=== PATIENT | male | born 1965 | race Caucasian/White ===

== ENCOUNTER 2020-07-02 12:54 | Emergency (ER) | payer MEDICAID ==
[~2020-07-02] VITALS: Ht 175.3 cm; Wt 75.0 kg
[~2020-07-02 12:54] MED LIST: CYCL-1 PO; DIGO125T PO; Levothyroxine PO; Metoprolol PO
[2020-07-02 13:52] LABS: BASOPHILS % (AUTO) 0.4 % (0-1); EOSINOPHILS % (AUTO) 0.3 % (0-6); HEMOGLOBIN 15.5 g/dl (14.0-17.9); LYMPHOCYTES # (AUTO) 1.5 X10'3 (1.1-4.8); LYMPHOCYTES % (AUTO) 14.6 % (21-51); MEAN CORPUSCULAR HEMOGLOBIN 30.1 PG (27.0-31.0); MEAN CORPUSCULAR HGB CONC 34.4 g/dL (33.0-36.5); MEAN CORPUSCULAR VOLUME 87.5 FL (78-98); MEAN PLATELET VOLUME 6.8 FL (7.4-10.4); MONOCYTES # (AUTO) 0.8 X10'3 (0-0.9); MONOCYTES % (AUTO) 7.9 % (2-12); NEUTROPHILS # (AUTO) 7.9 X10'3 (1.8-7.7); NEUTROPHILS % (AUTO) 76.8 % (42-75); PLATELET COUNT 380 X10'3 (140-440); RED BLOOD COUNT 5.14 X10'6 (4.70-6.10); RED CELL DISTRIBUTION WIDTH 14.3 % (11.5-14.5); WHITE BLOOD COUNT 10.3 X10'3 (4.5-11.0)
[2020-07-02 14:05] LABS: ALANINE AMINOTRANSFERASE 25 U/L (12-78); ALBUMIN 4.5 G/DL (3.4-5.0); ALBUMIN/GLOBULIN RATIO 1.2 (1.1-1.5); ALKALINE PHOSPHATASE 60 IU/L (46-116); ANION GAP 19 (8-16); ASPARTATE AMINO TRANSFERASE 18 U/L (10-37); BILIRUBIN,TOTAL 0.8 MG/DL (0.1-1.0); BLOOD UREA NITROGEN 12 MG/DL (7-18); BUN/CREATININE RATIO 12.6 (5.4-32.0); CALCIUM 9.6 MG/DL (8.5-10.1); CHLORIDE 104 MMOL/L (99-107); CREATININE 0.95 MG/DL (0.60-1.10); GLUCOSE 96 MG/DL (70-104); SODIUM 140 MMOL/L (135-145); TOTAL CARBON DIOXIDE 16.9 MMOL/L (24-32); TOTAL PROTEIN 8.3 G/DL (6.4-8.2); eGFR 82 ML/MIN
[2020-07-02 14:13] LABS: MAGNESIUM 2.4 MG/DL (1.5-2.4)
[2020-07-02 14:23] LABS: D-DIMER < 0.19 MG/L FEU (0-0.50)
[2020-07-02] MEDS ORDERED: LORA-269 PO (14:44)
--- NOTE | 2020-07-02 14:55 | NUR ---
PATIENT AMBULATED ABOUT 300 FEET WITH SPO2 MONITOR ON AND HR IN THE MID SEVENTIES AND SPO2 99% THE WHOLE TIME DISCUSSES PATIENT'S LABS AND CXR WITH PA AND PATIENT PATIENT APPEARS TO HAVE ANXIETY, WHEN I TALKED WITH HIM AND REMINDED HIM TO BREATHE SLOWER, HE DID PATIENT ADVISED TO MAKE SLOW POSITION CHANGES TO ALLOW HIS BODY TO RECOVER SO HE WONT BE DIZZY QHWN HE CHANGES POSTIONS: HE DID IT AND DENIED DIZZYNESS
[2020-07-02 15:07] VITALS: BP 118/70
== END 2020-07-02 15:11 | disposition home or self-care (01) ==
LOC: ER 12:55
DX: R06.02 Shortness of breath (principal); I48.91 Unspecified atrial fibrillation; I10 Essential (primary) hypertension; E07.9 Disorder of thyroid, unspecified; G89.29 Other chronic pain; Z98.890 Other specified postprocedural states; Z79.899 Other long term (current) drug therapy
CPT/HCPCS: 36415; 71045; 80053; 83735; 83880; 84484; 85025; 85379; 93005; 99285

== ENCOUNTER 2021-02-01 08:07 | Emergency (ER) | payer MEDICAID ==
[~2021-02-01] VITALS: Ht 175.3 cm; Wt 68.2 kg
[~2021-02-01 08:07] MED LIST changes: +LORA-269 PO
--- NOTE | 2021-02-01 09:57 | NUR ---
patient moved to bed 4.
[2021-02-01 10:04] LABS: ALANINE AMINOTRANSFERASE 22 U/L (12-78); ALKALINE PHOSPHATASE 66 IU/L (46-116); ANION GAP 12 (8-16); ASPARTATE AMINO TRANSFERASE 21 U/L (10-37); BILIRUBIN,TOTAL 0.8 MG/DL (0.1-1.0); BLOOD UREA NITROGEN 12 MG/DL (7-18); BUN/CREATININE RATIO 13.5 (5.4-32.0); CHLORIDE 103 MMOL/L (99-107); CREATININE 0.89 MG/DL (0.60-1.10); GLUCOSE 97 MG/DL (70-104); POTASSIUM 4.4 MMOL/L (3.5-5.1); SODIUM 136 MMOL/L (135-145); TOTAL CARBON DIOXIDE 21.1 MMOL/L (24-32); eGFR 88 ML/MIN
[2021-02-01 10:23] LABS: BASOPHILS % (AUTO) 0.4 % (0-1); EOSINOPHILS # (AUTO) 0.1 X10'3 (0-0.9); EOSINOPHILS % (AUTO) 0.7 % (0-6); HEMATOCRIT 43.8 % (42.0-52.0); HEMOGLOBIN 15.3 g/dl (14.0-17.9); LYMPHOCYTES # (AUTO) 1.9 X10'3 (1.1-4.8); LYMPHOCYTES % (AUTO) 18.1 % (21-51); MEAN CORPUSCULAR HEMOGLOBIN 30.2 PG (27.0-31.0); MEAN CORPUSCULAR HGB CONC 34.9 g/dL (33.0-36.5); MEAN CORPUSCULAR VOLUME 86.3 FL (78-98); MEAN PLATELET VOLUME 6.9 FL (7.4-10.4); MONOCYTES # (AUTO) 0.9 X10'3 (0-0.9); MONOCYTES % (AUTO) 8.7 % (2-12); NEUTROPHILS # (AUTO) 7.5 X10'3 (1.8-7.7); NEUTROPHILS % (AUTO) 72.1 % (42-75); PLATELET COUNT 339 X10'3 (140-440); RED BLOOD COUNT 5.08 X10'6 (4.70-6.10); RED CELL DISTRIBUTION WIDTH 14.1 % (11.5-14.5); WHITE BLOOD COUNT 10.5 X10'3 (4.5-11.0)
[2021-02-01] MEDS ORDERED: LORazepam 1 MG tablet PO ONE (11:15)
[2021-02-01 12:30] VITALS: BP 115/84
[2021-02-01] MEDS ORDERED: ORPH100T2 PO (12:35)
== END 2021-02-01 12:43 | disposition home or self-care (01) ==
LOC: ER 08:07
DX: R06.4 Hyperventilation (principal); Z20.822 Contact with and (suspected) exposure to COVID-19; R06.02 Shortness of breath; I48.91 Unspecified atrial fibrillation; I10 Essential (primary) hypertension; G89.29 Other chronic pain; Z98.890 Other specified postprocedural states; Z79.899 Other long term (current) drug therapy
CPT/HCPCS: 36415; 71045; 80053; 83880; 84484; 85025; 87635; 93005; 99285; C9803

== ENCOUNTER 2021-03-30 09:01 | Emergency (ER) | payer MEDICAID ==
[~2021-03-30] VITALS: Ht 175.3 cm; Wt 72.7 kg
[~2021-03-30 09:01] MED LIST changes: +ORPH100T2 PO
[2021-03-30 10:15] VITALS: BP 137/89
[2021-03-30] MEDS ORDERED: LORA-269 PO (16:17)
== END 2021-03-30 16:34 | disposition home or self-care (01) ==
LOC: ER 09:01
DX: F41.1 Generalized anxiety disorder (principal); G89.29 Other chronic pain; M54.2 Cervicalgia; I48.91 Unspecified atrial fibrillation; I10 Essential (primary) hypertension; Z98.890 Other specified postprocedural states; Z79.899 Other long term (current) drug therapy
CPT/HCPCS: 99283